=== PATIENT | female | born 1995 | race Hispanic/Latino ===

== ENCOUNTER 2018-08-04 14:13 | Emergency (ER) | payer SELFPAY ==
--- NOTE | 2018-08-04 15:35 | RAD ---
CHEST PA AND LATERAL: HISTORY: Chest pain. Shortness of breath. FINDINGS: The heart size is normal. The lungs are well expanded and clear. The bony thorax is normal. IMPRESSION: Normal examination. POS: [facility]
--- NOTE | 2018-08-08 11:28 | EKG ---
Test Reason : CP Blood Pressure : / mmHG Vent. Rate : 078 BPM Atrial Rate : 078 BPM P-R Int : 140 ms QRS Dur : 078 ms QT Int : 352 ms P-R-T Axes : 058 071 050 degrees QTc Int : 401 ms Normal sinus rhythm Normal ECG Confirmed by HERMELINDO BATRES DO ([id number]), field map editor MELLY GOLDMAN ([id number]) on 08/08/2018 11:28:07 AM Referred By: Confirmed By:HERMELINDO BATRES DO
== END 2018-08-04 15:34 | disposition home or self-care (01) ==
LOC: ERS 14:13
DX: S16.1XXA Strain of muscle, fascia and tendon at neck level, initial encounter (principal); S20.211A Contusion of right front wall of thorax, initial encounter; F41.9 Anxiety disorder, unspecified; W17.89XA Other fall from one level to another, initial encounter
CPT/HCPCS: 71046; 93005